=== PATIENT | male | born 1945 | race Caucasian/White ===

== ENCOUNTER 2017-09-06 15:12 | Inpatient (IN) | payer BC, MEDICARE ==
[2017-09-06 15:37] LABS: ADD MAN DIFF? NO
[2017-09-06 15:41] LABS: BASOPHILS % 0.2 % (0.0-2.0); EOSINOPHILS # 0.6 10^3/ul (0.0-0.5); EOSINOPHILS % 4.8 % (0.0-7.0); HEMATOCRIT 33.4 % (42.0-52.0); LYMPHOCYTES # 3.2 10^3/ul (0.8-2.9); MEAN CORPUSCULAR HEMOGLOBIN 31.3 pg (29.0-33.0); MEAN CORPUSCULAR HGB CONC 32.9 g/dl (32.0-37.0); MEAN CORPUSCULAR VOLUME 94.9 fl (82.0-101.0); MEAN PLATELET VOLUME 8.7 fl (7.4-10.4); MONOCYTE # 0.9 10^3/ul (0.3-0.9); MONOCYTES % 7.8 % (0.0-11.0); NEUTROPHIL # 7.1 10^3/ul (1.6-7.5); NEUTROPHILS % 59.7 % (39.0-77.0); PLATELET COUNT 430 10^3/UL (140-415); RED BLOOD COUNT 3.52 10^6/ul (4.70-6.10); RED CELL DISTRIBUTION WIDTH 15.1 % (11.5-14.5)
[2017-09-06 15:41] LABS: WHITE BLOOD COUNT 11.9 10^3/ul (4.8-10.8)
[2017-09-06 15:50] LABS: INR 1.21; PROTIME 15.5 Sec (11.9-14.9); PT RATIO 1.2
[2017-09-06 15:51] LABS: PARTIAL THROMBOPLASTIN TIME 32.5 Sec (25.0-35.0)
[2017-09-06 15:54] LABS: ANION GAP 12 (8-16); BLOOD UREA NITROGEN 17 mg/dl (7-20); CALCIUM 8.6 mg/dl (8.4-10.2); CARBON DIOXIDE 28 mmol/L (21-31); CHLORIDE 103 mmol/L (97-110); CREATININE 1.58 mg/dl (0.61-1.24); GLUCOSE 121 mg/dl (70-220); POTASSIUM 3.5 mmol/L (3.5-5.1); SODIUM 139 mmol/L (135-144)
[2017-09-06] MEDS: PANTOPRAZOLE 40 MG INJ IV ×2 (16:04→21:29)
[2017-09-06] MEDS: SOD CHLORIDE 0.9% 1,000 ML IV ×2 (16:05→21:14)
[2017-09-06 16:09] LABS: TROPONIN-I < 0.012 ng/ml (0.00-0.12)
[2017-09-06] MEDS ORDERED: ONDANSETRON 4 MG INJ IV ×2 (16:30→17:30)
[2017-09-06] MEDS ORDERED: ACETAMINOPHEN 325 MG TAB PO ×2 (16:30→17:30)
[2017-09-06] MEDS ORDERED: NACL 0.9% 3 ML SYG IV (17:30)
[2017-09-06 18:00] LABS: HEMOGLOBIN A1C 5.6 % (0-5.9)
[2017-09-06 18:03] LABS: IRON 35 ug/dl (35-150)
[2017-09-06 18:13] LABS: % IRON SATURATION 12 % SAT (22-52); TOTAL IRON BINDING CAPACITY 301 ug/dl (241-421)
[2017-09-06 18:21] LABS: FREE T4 (FREE THYROXINE) 1.35 ng/dl (0.78-2.44)
[2017-09-06 20:18] LABS: ADD UMIC YES; UR ASCORBIC ACID NEGATIVE (NEGATIVE); UR BILIRUBIN (Dip) NEGATIVE (NEGATIVE); UR BLOOD (Dip) NEGATIVE (NEGATIVE); UR CLARITY CLEAR (CLEAR); UR COLOR YELLOW (YELLOW); UR GLUCOSE (Dip) NEGATIVE (NEGATIVE); UR KETONES (Dip) NEGATIVE (NEGATIVE); UR LEUKOCYTE ESTERASE (Dip) NEGATIVE Leu/ul (NEGATIVE); UR MUCUS FEW /HPF (NONE SEEN); UR NITRITE (Dip) NEGATIVE (NEGATIVE); UR RBC 0 /HPF (0-5); UR SPECIFIC GRAVITY (Dip) 1.027 (1.003-1.030); UR TOTAL PROTEIN (Dip) 1+ mg/dl (NEGATIVE); UR UROBILINOGEN (Dip) NEGATIVE (NEGATIVE); UR WBC 1 /HPF (0-5)
[2017-09-06 20:21] LABS: AMPHETAMINE/METHAMPHETAMINE Negative (NEGATIVE); BARBITURATES Negative (NEGATIVE); BENZODIAZEPINES Negative (NEGATIVE); CANNABINOIDS Negative (NEGATIVE); COCAINE Negative (NEGATIVE); OPIATES Positive (NEGATIVE)
[2017-09-06 20:56] LABS: FOLATE 7.9 ng/ml (2.8-20.0)
[2017-09-06 20:58] LABS: THYROID STIMULATING HORMONE 0.915 MIU/L (0.465-4.680)
[2017-09-06] MEDS: ZOLPIDEM 5 MG TAB PO (21:29)
[2017-09-07 02:01] LABS: OCCULT BLOOD STOOL POSITIVE (NEGATIVE)
[2017-09-07] MEDS: ZOLPIDEM 5 MG TAB PO (04:18)
[2017-09-07] MEDS: LOPERAMIDE 2 MG CAP PO ×2 (04:19→19:25)
[2017-09-07] MEDS: PANTOPRAZOLE 40 MG INJ IV ×2 (06:00→17:22)
[2017-09-07] MEDS: SOD CHLORIDE 0.9% 1,000 ML IV ×2 (06:50→20:10)
[2017-09-07 08:40] LABS: ADD MAN DIFF? NO
[2017-09-07 08:43] LABS: BASOPHILS % 0.3 % (0.0-2.0); EOSINOPHILS # 0.7 10^3/ul (0.0-0.5); EOSINOPHILS % 7.8 % (0.0-7.0); HEMATOCRIT 27.6 % (42.0-52.0); HEMOGLOBIN 8.9 g/dl (14.0-18.0); LYMPHOCYTES # 1.9 10^3/ul (0.8-2.9); LYMPHOCYTES % 19.9 % (15.0-51.0); MEAN CORPUSCULAR HGB CONC 32.2 g/dl (32.0-37.0); MEAN CORPUSCULAR VOLUME 96.2 fl (82.0-101.0); MONOCYTE # 0.8 10^3/ul (0.3-0.9); MONOCYTES % 8.1 % (0.0-11.0); NEUTROPHILS % 63.5 % (39.0-77.0); PLATELET COUNT 324 10^3/UL (140-415); POSITIVE DIFF @See below; RED BLOOD COUNT 2.87 10^6/ul (4.70-6.10); RED CELL DISTRIBUTION WIDTH 15.3 % (11.5-14.5)
[2017-09-07 08:43] LABS: WHITE BLOOD COUNT 9.5 10^3/ul (4.8-10.8)
[2017-09-07 09:05] LABS: ALANINE AMINOTRANSFERASE 22 IU/L (13-69); ALBUMIN 2.3 g/dl (3.3-4.9); ALBUMIN/GLOBULIN RATIO 0.85; ALKALINE PHOSPHATASE 65 IU/L (42-121); ANION GAP 9 (8-16); ASPARTATE AMINO TRANSFERASE 19 IU/L (15-46); BILIRUBIN,INDIRECT 0.2 mg/dl (0-1.1); BILIRUBIN,TOTAL 0.2 mg/dl (0.2-1.3); BLOOD UREA NITROGEN 15 mg/dl (7-20); CALCIUM 7.6 mg/dl (8.4-10.2); CARBON DIOXIDE 26 mmol/L (21-31); CHLORIDE 107 mmol/L (97-110); GLUCOSE 90 mg/dl (70-220); POTASSIUM 3.3 mmol/L (3.5-5.1); SODIUM 139 mmol/L (135-144)
[2017-09-07 09:09] LABS: CHOL/HDL RATIO 4.4 RATIO; CHOLESTEROL 75 mg/dl (100-200); HDL CHOLESTEROL 17 mg/dl (31-75); LDL CHOLESTEROL,CALCULATED 41 mg/dl; MAGNESIUM 1.9 mg/dl (1.7-2.5); TRIGLYCERIDES 83 mg/dl (0-149)
[2017-09-07] MEDS: HYDROCODONE/APAP (5/325) TAB PO ×2 (13:12→19:25)
[2017-09-07] MEDS: POTASSIUM CHLORIDE (SR) 20 MEQ TAB PO (14:23)
[2017-09-07 14:34] LABS: IRON 29 ug/dl (35-150)
[2017-09-07 14:43] LABS: % IRON SATURATION 12 % SAT (22-52); TOTAL IRON BINDING CAPACITY 250 ug/dl (241-421)
[2017-09-07 15:10] LABS: FERRITIN 12.1 ng/ml (11.1-264.0)
[2017-09-07 15:23] LABS: HEPATITIS C VIRAL ANTIBODY NEGATIVE (NEGATIVE)
[2017-09-07] MEDS: HYOSCYAMINE 0.125 MG TAB PO ×2 (16:16→18:34)
[2017-09-07] MEDS: RIFAXIMIN 550 MG TAB PO (20:44)
[2017-09-07] MEDS: SOD CHLORIDE 0.9% 500 ML IV (21:30)
[2017-09-08] MEDS: LOPERAMIDE 2 MG CAP PO (00:31)
[2017-09-08] MEDS: HYOSCYAMINE 0.125 MG TAB PO ×5 (00:31→23:25)
[2017-09-08] MEDS: ZOLPIDEM 5 MG TAB PO ×2 (00:32→23:25)
[2017-09-08] MEDS: HYDROCODONE/APAP (5/325) TAB PO ×4 (00:32→23:25)
[2017-09-08] MEDS: SOD CHLORIDE 0.9% 1,000 ML IV ×4 (04:00→22:50)
[2017-09-08] MEDS: PANTOPRAZOLE 40 MG INJ IV ×2 (05:53→17:39)
[2017-09-08 08:42] LABS: ADD MAN DIFF? NO
[2017-09-08 08:48] LABS: WHITE BLOOD COUNT 9.7 10^3/ul (4.8-10.8)
[2017-09-08 08:48] LABS: BASOPHILS % 0.3 % (0.0-2.0); EOSINOPHILS % 10.5 % (0.0-7.0); HEMATOCRIT 28.2 % (42.0-52.0); HEMOGLOBIN 8.9 g/dl (14.0-18.0); LYMPHOCYTES # 1.6 10^3/ul (0.8-2.9); LYMPHOCYTES % 16.8 % (15.0-51.0); MEAN CORPUSCULAR HGB CONC 31.6 g/dl (32.0-37.0); MEAN CORPUSCULAR VOLUME 98.3 fl (82.0-101.0); MEAN PLATELET VOLUME 9.2 fl (7.4-10.4); MONOCYTE # 0.7 10^3/ul (0.3-0.9); MONOCYTES % 7.3 % (0.0-11.0); NEUTROPHIL # 6.3 10^3/ul (1.6-7.5); NEUTROPHILS % 64.7 % (39.0-77.0); PLATELET COUNT 313 10^3/UL (140-415); POSITIVE DIFF @See below; RED BLOOD COUNT 2.87 10^6/ul (4.70-6.10); RED CELL DISTRIBUTION WIDTH 15.2 % (11.5-14.5)
[2017-09-08] MEDS: RIFAXIMIN 550 MG TAB PO ×2 (08:49→22:11)
[2017-09-08 09:07] LABS: ALANINE AMINOTRANSFERASE 21 IU/L (13-69); ALBUMIN/GLOBULIN RATIO 0.74; ALKALINE PHOSPHATASE 64 IU/L (42-121); ANION GAP 10 (8-16); ASPARTATE AMINO TRANSFERASE 15 IU/L (15-46); BILIRUBIN,INDIRECT 0.2 mg/dl (0-1.1); BILIRUBIN,TOTAL 0.2 mg/dl (0.2-1.3); BLOOD UREA NITROGEN 13 mg/dl (7-20); CALCIUM 7.4 mg/dl (8.4-10.2); CARBON DIOXIDE 25 mmol/L (21-31); CHLORIDE 109 mmol/L (97-110); GLUCOSE 92 mg/dl (70-220); POTASSIUM 3.5 mmol/L (3.5-5.1); SODIUM 140 mmol/L (135-144); TOTAL PROTEIN 4.7 g/dl (6.1-8.1)
[2017-09-08] MEDS: POTASSIUM CHLORIDE (SR) 20 MEQ TAB PO (13:44)
[2017-09-08] MEDS: SOD FERRIC GLUC COMPLX 125 MG in SOD CHLORIDE 0.9% 100 ML IVPB (17:35)
[2017-09-08] MEDS: POLYETHYLENE GLYCOL 3350 119 GM POWDER PO (18:30)
[2017-09-08] MEDS: BISACODYL (EC) 5 MG TAB PO ×2 (20:12→22:11)
[2017-09-08] MEDS: MAGNESIUM CITRATE 300 ML BTL PO (20:13)
[2017-09-09] MEDS: SOD CHLORIDE 0.9% 1,000 ML IV ×2 (03:33→22:40)
[2017-09-09] MEDS: POLYETHYLENE GLYCOL 3350 119 GM POWDER PO (05:23)
[2017-09-09] MEDS: PANTOPRAZOLE 40 MG INJ IV ×2 (05:25→18:58)
[2017-09-09] MEDS: HYOSCYAMINE 0.125 MG TAB PO ×3 (05:25→18:58)
[2017-09-09] MEDS: HYDROCODONE/APAP (5/325) TAB PO ×2 (05:35→19:00)
[2017-09-09 05:58] LABS: ADD MAN DIFF? NO
[2017-09-09 06:15] LABS: WHITE BLOOD COUNT 11.4 10^3/ul (4.8-10.8)
[2017-09-09 06:15] LABS: BASOPHILS % 0.3 % (0.0-2.0); EOSINOPHILS # 1.1 10^3/ul (0.0-0.5); EOSINOPHILS % 9.9 % (0.0-7.0); HEMATOCRIT 30.8 % (42.0-52.0); HEMOGLOBIN 9.8 g/dl (14.0-18.0); LYMPHOCYTES # 2.4 10^3/ul (0.8-2.9); LYMPHOCYTES % 21.2 % (15.0-51.0); MEAN CORPUSCULAR HEMOGLOBIN 31.2 pg (29.0-33.0); MEAN CORPUSCULAR HGB CONC 31.8 g/dl (32.0-37.0); MEAN CORPUSCULAR VOLUME 98.1 fl (82.0-101.0); MONOCYTE # 0.9 10^3/ul (0.3-0.9); NEUTROPHIL # 6.8 10^3/ul (1.6-7.5); NEUTROPHILS % 60.2 % (39.0-77.0); PLATELET COUNT 331 10^3/UL (140-415); POSITIVE DIFF @See below; RED BLOOD COUNT 3.14 10^6/ul (4.70-6.10); RED CELL DISTRIBUTION WIDTH 15.5 % (11.5-14.5)
[2017-09-09 06:40] LABS: ANION GAP 10 (8-16); BLOOD UREA NITROGEN 12 mg/dl (7-20); CALCIUM 7.8 mg/dl (8.4-10.2); CARBON DIOXIDE 25 mmol/L (21-31); CHLORIDE 110 mmol/L (97-110); GLUCOSE 98 mg/dl (70-220); POTASSIUM 3.9 mmol/L (3.5-5.1); SODIUM 141 mmol/L (135-144)
[2017-09-09] MEDS: RIFAXIMIN 550 MG TAB PO ×2 (09:00→20:16)
[2017-09-09 11:50] LABS: ANISOCYTOSIS 1+ (0-0); BAND NEUTROPHILS #M 3.4 10^3/ul (0.0-0.6); BAND NEUTROPHILS % (M) 30 % (0-4); EOSINOPHILS % (M) 8 % (0-7); LYMPHOCYTES % (M) 9 % (15-51); MICROCYTOSIS 1+ (0-0); MONOCYTE #M 1.1 10^3/ul (0.3-0.9); MONOCYTES % (M) 10 % (0-11); PLATELET ESTIMATE NORMAL; POLYCHROMASIA 2+ (0-0); REACTIVE LYMPHOCYTES #M 0.6 10^3/ul (0.0-0.0); REACTIVE LYMPHOCYTES% (M) 6 % (0-0); SEG NEUT #M 4.6 10^3/ul (1.6-7.5); SEGMENTED NEUTROPHILS (M) % 37 % (39-77); SMUDGE%M 17 % (0-0)
[2017-09-09] MEDS ORDERED: PROPOFOL 20 ML (17:11)
[2017-09-09] MEDS ORDERED: LIDOCAINE 2% (SDV) 5 ML INJ (17:11)
[2017-09-09] MEDS ORDERED: ONDANSETRON 4 MG INJ IV (17:30)
[2017-09-09] MEDS ORDERED: PHENYLephrine (100 MCG/ML) 5ML SYG (17:52)
[2017-09-09] MEDS: SOD FERRIC GLUC COMPLX 125 MG in SOD CHLORIDE 0.9% 100 ML IVPB (18:59)
[2017-09-09] MEDS: ZOLPIDEM 5 MG TAB PO (23:29)
[2017-09-10] MEDS: HYDROCODONE/APAP (5/325) TAB PO ×4 (00:42→22:41)
[2017-09-10] MEDS: HYOSCYAMINE 0.125 MG TAB PO ×5 (00:42→23:40)
[2017-09-10] MEDS: SOD CHLORIDE 0.9% 1,000 ML IV ×2 (01:30→13:06)
[2017-09-10] MEDS: PANTOPRAZOLE 40 MG INJ IV ×2 (05:24→17:34)
[2017-09-10 05:59] LABS: ADD MAN DIFF? NO
[2017-09-10 06:05] LABS: WHITE BLOOD COUNT 9.4 10^3/ul (4.8-10.8)
[2017-09-10 06:05] LABS: BASOPHILS % 0.2 % (0.0-2.0); EOSINOPHILS # 0.7 10^3/ul (0.0-0.5); EOSINOPHILS % 7.7 % (0.0-7.0); HEMOGLOBIN 9.2 g/dl (14.0-18.0); LYMPHOCYTES # 1.7 10^3/ul (0.8-2.9); LYMPHOCYTES % 18.2 % (15.0-51.0); MEAN CORPUSCULAR HEMOGLOBIN 31.1 pg (29.0-33.0); MEAN CORPUSCULAR HGB CONC 31.7 g/dl (32.0-37.0); MEAN PLATELET VOLUME 9.1 fl (7.4-10.4); MONOCYTE # 0.7 10^3/ul (0.3-0.9); MONOCYTES % 7.8 % (0.0-11.0); NEUTROPHIL # 6.2 10^3/ul (1.6-7.5); NEUTROPHILS % 65.6 % (39.0-77.0); PLATELET COUNT 318 10^3/UL (140-415); POSITIVE DIFF @See below; RED BLOOD COUNT 2.96 10^6/ul (4.70-6.10); RED CELL DISTRIBUTION WIDTH 15.8 % (11.5-14.5)
[2017-09-10 06:31] LABS: ANION GAP 7 (8-16); BLOOD UREA NITROGEN 11 mg/dl (7-20); CALCIUM 7.6 mg/dl (8.4-10.2); CARBON DIOXIDE 27 mmol/L (21-31); CHLORIDE 112 mmol/L (97-110); CREATININE 1.19 mg/dl (0.61-1.24); GLUCOSE 108 mg/dl (70-220); POTASSIUM 3.6 mmol/L (3.5-5.1); SODIUM 142 mmol/L (135-144)
[2017-09-10 07:46] LABS: BAND NEUTROPHILS #M 2.3 10^3/ul (0.0-0.6); BAND NEUTROPHILS % (M) 25 % (0-4); EOSINOPHILS % (M) 17 % (0-7); LYMPHOCYTES #M 1.9 10^3/ul (0.8-2.9); LYMPHOCYTES % (M) 21 % (15-51); MONOCYTE #M 0.5 10^3/ul (0.3-0.9); MONOCYTES % (M) 6 % (0-11); MYELOCYTES % (M) 1 % (0-0); PLATELET ESTIMATE NORMAL; POIKILOCYTOSIS 1+ (0-0); POLYCHROMASIA 3+ (0-0); SEGMENTED NEUTROPHILS (M) % 30 % (39-77); SMUDGE%M 3 % (0-0)
[2017-09-10] MEDS: RIFAXIMIN 550 MG TAB PO (08:39)
[2017-09-10] MEDS: METHYLPREDNISOLONE 40 MG INJ IV ×2 (14:13→21:15)
[2017-09-10] MEDS: SOD FERRIC GLUC COMPLX 125 MG in SOD CHLORIDE 0.9% 100 ML IVPB (17:33)
[2017-09-10] MEDS: ZOLPIDEM 5 MG TAB PO (23:40)
[2017-09-11] MEDS: SOD CHLORIDE 0.9% 1,000 ML IV ×3 (03:41→16:27)
[2017-09-11] MEDS: METHYLPREDNISOLONE 40 MG INJ IV ×2 (05:34→14:00)
[2017-09-11] MEDS: PANTOPRAZOLE 40 MG INJ IV ×2 (05:34→17:46)
[2017-09-11] MEDS: HYOSCYAMINE 0.125 MG TAB PO ×2 (05:35→11:34)
[2017-09-11] MEDS: HYDROCODONE/APAP (5/325) TAB PO ×4 (05:37→23:39)
[2017-09-11 05:49] LABS: ADD MAN DIFF? NO
[2017-09-11 05:55] LABS: BASOPHILS % 0.3 % (0.0-2.0); EOSINOPHILS % 0.2 % (0.0-7.0); HEMATOCRIT 26.2 % (42.0-52.0); HEMOGLOBIN 8.5 g/dl (14.0-18.0); LYMPHOCYTES # 1.4 10^3/ul (0.8-2.9); LYMPHOCYTES % 21.4 % (15.0-51.0); MEAN CORPUSCULAR HEMOGLOBIN 31.7 pg (29.0-33.0); MEAN CORPUSCULAR HGB CONC 32.4 g/dl (32.0-37.0); MEAN CORPUSCULAR VOLUME 97.8 fl (82.0-101.0); MEAN PLATELET VOLUME 9.3 fl (7.4-10.4); MONOCYTE # 0.4 10^3/ul (0.3-0.9); MONOCYTES % 6.5 % (0.0-11.0); NEUTROPHIL # 4.4 10^3/ul (1.6-7.5); NEUTROPHILS % 69.5 % (39.0-77.0); PLATELET COUNT 284 10^3/UL (140-415); RED BLOOD COUNT 2.68 10^6/ul (4.70-6.10); RED CELL DISTRIBUTION WIDTH 15.5 % (11.5-14.5)
[2017-09-11 05:55] LABS: WHITE BLOOD COUNT 6.3 10^3/ul (4.8-10.8)
[2017-09-11 06:17] LABS: ANION GAP 8 (8-16); BLOOD UREA NITROGEN 11 mg/dl (7-20); CALCIUM 7.5 mg/dl (8.4-10.2); CARBON DIOXIDE 25 mmol/L (21-31); CHLORIDE 113 mmol/L (97-110); CREATININE 1.08 mg/dl (0.61-1.24); GLUCOSE 147 mg/dl (70-220); MAGNESIUM 2.1 mg/dl (1.7-2.5); PHOSPHORUS 2.6 mg/dl (2.5-4.9); POTASSIUM 3.8 mmol/L (3.5-5.1); SODIUM 142 mmol/L (135-144)
[2017-09-11] MEDS ORDERED: DICYCLOMINE 10 MG CAP PO (18:00)
[2017-09-11] MEDS: predniSONE 20 MG TAB PO (21:17)
[2017-09-11] MEDS: ZOLPIDEM 5 MG TAB PO (23:39)
[2017-09-12] MEDS: PANTOPRAZOLE 40 MG INJ IV (05:21)
[2017-09-12] MEDS: predniSONE 20 MG TAB PO ×2 (05:21→14:36)
[2017-09-12] MEDS: SOD CHLORIDE 0.9% 1,000 ML IV (05:21)
[2017-09-12] MEDS: HYDROCODONE/APAP (5/325) TAB PO ×2 (05:37→23:23)
[2017-09-12 07:14] LABS: ADD MAN DIFF? NO
[2017-09-12 07:19] LABS: BASOPHILS % 0.3 % (0.0-2.0); HEMATOCRIT 27.2 % (42.0-52.0); HEMOGLOBIN 8.6 g/dl (14.0-18.0); LYMPHOCYTES # 1.3 10^3/ul (0.8-2.9); LYMPHOCYTES % 18.6 % (15.0-51.0); MEAN CORPUSCULAR HEMOGLOBIN 31.5 pg (29.0-33.0); MEAN CORPUSCULAR HGB CONC 31.6 g/dl (32.0-37.0); MEAN CORPUSCULAR VOLUME 99.6 fl (82.0-101.0); MEAN PLATELET VOLUME 9.5 fl (7.4-10.4); MONOCYTE # 0.4 10^3/ul (0.3-0.9); NEUTROPHIL # 5.3 10^3/ul (1.6-7.5); NEUTROPHILS % 73.2 % (39.0-77.0); PLATELET COUNT 299 10^3/UL (140-415); RED BLOOD COUNT 2.73 10^6/ul (4.70-6.10); RED CELL DISTRIBUTION WIDTH 16.1 % (11.5-14.5)
[2017-09-12 07:19] LABS: WHITE BLOOD COUNT 7.2 10^3/ul (4.8-10.8)
[2017-09-12] MEDS: BALSALAZIDE 750 MG CAP PO (21:12)
[2017-09-12] MEDS: ZOLPIDEM 5 MG TAB PO (23:22)
[2017-09-13 05:39] LABS: ADD MAN DIFF? NO
[2017-09-13 05:43] LABS: BASOPHILS % 0.3 % (0.0-2.0); EOSINOPHILS % 0.1 % (0.0-7.0); HEMATOCRIT 26.2 % (42.0-52.0); HEMOGLOBIN 8.3 g/dl (14.0-18.0); LYMPHOCYTES # 1.8 10^3/ul (0.8-2.9); LYMPHOCYTES % 26.7 % (15.0-51.0); MEAN CORPUSCULAR HEMOGLOBIN 31.2 pg (29.0-33.0); MEAN CORPUSCULAR HGB CONC 31.7 g/dl (32.0-37.0); MEAN CORPUSCULAR VOLUME 98.5 fl (82.0-101.0); MEAN PLATELET VOLUME 9.3 fl (7.4-10.4); MONOCYTE # 0.6 10^3/ul (0.3-0.9); MONOCYTES % 8.3 % (0.0-11.0); NEUTROPHILS % 59.7 % (39.0-77.0); NUCLEATED RED BLOOD CELLS% 0.4 /100WBC (0.0-0.0); PLATELET COUNT 291 10^3/UL (140-415); RED BLOOD COUNT 2.66 10^6/ul (4.70-6.10); RED CELL DISTRIBUTION WIDTH 16.5 % (11.5-14.5)
[2017-09-13 05:43] LABS: WHITE BLOOD COUNT 6.7 10^3/ul (4.8-10.8)
[2017-09-13] MEDS: PANTOPRAZOLE (EC) 40 MG TAB PO (05:43)
[2017-09-13] MEDS: HYDROCODONE/APAP (5/325) TAB PO (05:46)
[2017-09-13 06:13] LABS: ANION GAP 8 (8-16); BLOOD UREA NITROGEN 13 mg/dl (7-20); CALCIUM 7.7 mg/dl (8.4-10.2); CARBON DIOXIDE 29 mmol/L (21-31); CHLORIDE 112 mmol/L (97-110); CREATININE 1.15 mg/dl (0.61-1.24); GLUCOSE 117 mg/dl (70-220); POTASSIUM 3.9 mmol/L (3.5-5.1); SODIUM 145 mmol/L (135-144)
[2017-09-13] MEDS: BALSALAZIDE 750 MG CAP PO ×2 (08:41→12:56)
== END 2017-09-13 20:00 | disposition home or self-care (01) | DRG 386 ==
LOC: MS2 09-08 16:20 → E/R 15:12 → TEL 16:16
PROC: 0DBP8ZX Excision of Rectum, Via Natural or Artificial Opening Endoscopic, Diagnostic (ICD-10-PCS; principal; 2017-09-09 17:00)
PROC: 0DBN8ZX Excision of Sigmoid Colon, Via Natural or Artificial Opening Endoscopic, Diagnostic (ICD-10-PCS; 2017-09-09 17:00)
DX: K51.811 Other ulcerative colitis with rectal bleeding (principal); K92.1 Melena; N17.9 Acute kidney failure, unspecified; D62 Acute posthemorrhagic anemia; D50.9 Iron deficiency anemia, unspecified; J44.9 Chronic obstructive pulmonary disease, unspecified; I45.10 Unspecified right bundle-branch block; Z87.891 Personal history of nicotine dependence
CPT/HCPCS: 36415; 80048; 80053; 80061; 80307; 81001; 82270; 82607; 82728; 82746; 82962; 83036; 83540; 83735; 84100; 84439; 84443; 84484; 85025; 85610; 85730; 86674; 86803; 86850; 86900; 86901; 87045; 87075; 87086; 87177; 87205; 87338; 88305; 93005; 93971; 96374; 99285-25